=== PATIENT | female | born 1995 | race African-American/Black ===

== ENCOUNTER 2019-04-29 23:28 | Emergency (ER) | payer SELFPAY ==
[~2019-04-29] VITALS: Ht 170.2 cm; Wt 61.2 kg
--- NOTE | 2019-04-29 23:44 | NUR ---
ER Nurse Note: Pt walked in c/o bright red vaginal bleeding since 04/28. Pt stated she has n/v in the past day. Pt stated she is changing her sunny-pad q45 min; sunny-pad is fully saturated. Pt stated cramping. Pt reported she took a test and resulted as positive. Last menstrual cycle was 03/2019.
--- NOTE | 2019-04-29 23:54 | Emergency Room Report ---
History of Present Illness General Chief Complaint: Complications Source: Patient Present Illness HPI Patient is a 23-year-old female presents after increased vaginal bleeding. Patient reports being and having recent positive test. She states she is G2, P0. She reports of increased clotting but denies any passage of tissue. She had not been vomiting. Denies any current dizziness or lightheadedness. Reports having some pelvic cramping onset of symptoms. Allergies: Coded Allergies: No Known Allergies (Unverified , 04/29/19) Patient History Past Medical History: see triage record Last Menstrual Period: 03/30/19 Now: Yes Reviewed Nursing Documentation: PMH: Agreed; PSxH: Agreed Nursing Documentation-PMH Past Medical History: No History, Except For Review of Systems All Other Systems: negative except mentioned in HPI Physical Exam Vital Signs Date Time Temp Pulse Resp B/P (MAP) Pulse Ox O2 Delivery O2 Flow Rate FiO2 04/29/19 23:32 98.4 65 16 113/60 (77) 98 Room Air Sp02 EP Interpretation: reviewed, normal General Appearance: normal inspection, well appearing, no apparent distress, alert, GCS 15, non-toxic Head: atraumatic ENT: normal ENT inspection, hearing grossly normal, normal voice Neck: normal inspection, full range of motion, supple, no bony tend Respiratory: normal inspection, lungs clear, normal breath sounds, no respiratory distress, no retraction, no wheezing Cardiovascular #1: regular rate, rhythm, no edema Gastrointestinal: normal inspection, normal bowel sounds, non tender, soft, no guarding, no hernia Genitourinary: no CVA tenderness Musculoskeletal: normal inspection, back normal, normal range of motion Neurologic: alert, motor strength/tone normal, marinator III-XII nml as tested, responsive, speech normal, normal inspection Psychiatric: normal inspection, judgement/insight normal, mood/affect normal Medical Decision Making Diagnostic Impression: Primary Impression: Urinary tract infection ER Course Presented for vaginal bleeding. Differential diagnosis include was not limited to anemia, coagulopathy, threatened miscarriage among others. Because of complexity of patient's case laboratory tests and imaging studies were ordered. Patient laboratory testing was unremarkable. Patient did have some reported bleeding laboratory testing showed adequate hemoglobin. Pelvic ultrasound did not show any evidence of ovarian cyst or adnexal mass. No intrauterine was seen.Patient's quantitative hCG was noted to be less than 1. Patient appears to be stable for outpatient management. She is advised to follow-up with her VENDING ROUTE DRIVER for recheck.Patient will be given prescription for oral antibiotics. Patient is advised to return if worse or any other concerns. This medical record is generated with [employer] director of development and marketing software. There may be some director of development and marketing discrepancies related to use of this software Labs Test 04/29/19 23:50 White Blood Count 8.3 K/UL (4.8-10.8) Red Blood Count 4.55 M/UL (4.20-5.40) Hemoglobin 14.8 G/DL (12.0-16.0) Hematocrit 43.6 % (37.0-47.0) Mean Corpuscular Volume 96 FL (80-99) Mean Corpuscular Hemoglobin 32.4 PG (27.0-31.0) Mean Corpuscular Hemoglobin Concent 33.9 G/DL (32.0-36.0) Red Cell Distribution Width 12.2 % (11.6-14.8) Platelet Count 172 K/UL (150-450) Mean Platelet Volume 10.9 FL (6.5-10.1) Neutrophils (%) (Auto) 61.9 % (45.0-75.0) Lymphocytes (%) (Auto) 30.9 % (20.0-45.0) Monocytes (%) (Auto) 5.0 % (1.0-10.0) Eosinophils (%) (Auto) 1.1 % (0.0-3.0) Basophils (%) (Auto) 1.1 % (0.0-2.0) Prothrombin Time 10.0 SEC (9.30-11.50) Prothromb Time International Ratio 0.9 (0.9-1.1) Activated Partial Thromboplast Time 27 SEC (23-33) Urine Color Yellow Urine Appearance Clear Urine pH 6 (4.5-8.0) Urine Specific [place] 1.025 (1.005-1.035) Urine Protein 1+ (NEGATIVE) Urine Glucose (UA) Negative (NEGATIVE) Urine Ketones 1+ (NEGATIVE) Urine Blood 5+ (NEGATIVE) Urine Nitrite Negative (NEGATIVE) Urine Bilirubin Negative (NEGATIVE) Urine Ictotest Negative (NEGATIVE) Urine Urobilinogen Normal MG/DL (0.0-1.0) Urine Leukocyte Esterase 1+ (NEGATIVE) Urine RBC 15-20 /HPF (0 - 2) Urine WBC 5-10 /HPF (0 - 2) Urine Squamous Epithelial Cells Many /LPF (NONE/OCC) Urine Bacteria Few /HPF (NONE) Sodium Level 146 MMOL/L (136-145) Potassium Level 3.8 MMOL/L (3.5-5.1) Chloride Level 107 MMOL/L (98-107) Carbon Dioxide Level 24 MMOL/L (21-32) Anion Gap 15 mmol/L (5-15) Blood Urea Nitrogen 14 mg/dL (7-18) Creatinine 1.1 MG/DL (0.55-1.30) Estimat Glomerular Filtration Rate > 60 mL/min (>60) Glucose Level 80 MG/DL (74-106) Calcium Level 9.3 MG/DL (8.5-10.1) Total Bilirubin 0.3 MG/DL (0.2-1.0) Aspartate Amino Transf (AST/SGOT) 19 U/L (15-37) Alanine Aminotransferase (ALT/SGPT) 22 U/L (12-78) Alkaline Phosphatase 59 U/L (46-116) Total Protein 8.2 G/DL (6.4-8.2) Albumin 4.0 G/DL (3.4-5.0) Globulin 4.2 g/dL Albumin/Globulin Ratio 1.0 (1.0-2.7) Lipase 130 U/L (73-393) Last Vital Signs Date Time Temp Pulse Resp B/P (MAP) Pulse Ox O2 Delivery O2 Flow Rate FiO2 04/29/19 23:32 98.4 65 16 113/60 (77) 98 Room Air Status: improved Disposition: HOME, SELF-CARE Condition: Stable Scripts Cephalexin* (KEFLEX*) 500 Mg Capsule 500 MG ORAL EVERY 6 HOURS, #28 CAP Prov: Jose Manuel Thomas MD 04/30/19 Referrals: NOT CHOSEN IPA/,REFERRING (PCP) Jose Manuel Thomas MD Apr 29, 2019 23:54
--- NOTE | 2019-04-30 00:09 | NUR ---
ER Nurse Note: Blood and urine sent to lab; awaiting results. US tech at pt side. Pt ambulatory and left with US tech. Will continue to montior.
[2019-04-30 00:10] LABS: BASOPHILS % (AUTO) 1.1 % (0.0-2.0); EOSINOPHILS % (AUTO) 1.1 % (0.0-3.0); HEMATOCRIT 43.6 % (37.0-47.0); HEMOGLOBIN 14.8 G/DL (12.0-16.0); LYMPHOCYTES % (AUTO) 30.9 % (20.0-45.0); MEAN CORPUSCULAR VOLUME 96 FL (80-99); NEUTROPHILS % (AUTO) 61.9 % (45.0-75.0); PLATELET COUNT 172 K/UL (150-450); RED BLOOD COUNT 4.55 M/UL (4.20-5.40); RED CELL DISTRIBUTION WIDTH 12.2 % (11.6-14.8); WHITE BLOOD COUNT 8.3 K/UL (4.8-10.8)
[2019-04-30 00:12] LABS: APPEARANCE,URINE CLEAR; BILIRUBIN, URINE NEGATIVE (NEGATIVE); GLUCOSE, URINE (UA) NEGATIVE (NEGATIVE); KETONES,URINE 1+ (NEGATIVE); LEUKOCYTE ESTERASE ,URINE 1+ (NEGATIVE); NITRITE,URINE NEGATIVE (NEGATIVE); PH,URINE 6 (4.5-8.0); PROTEIN,URINE 1+ (NEGATIVE); UROBILINOGEN,URINE NORMAL MG/DL (0.0-1.0)
[2019-04-30 00:25] LABS: ANION GAP 15 mmol/L (5-15); BLOOD UREA NITROGEN 14 mg/dL (7-18); CALCIUM 9.3 MG/DL (8.5-10.1); CARBON DIOXIDE 24 MMOL/L (21-32); CHLORIDE 107 MMOL/L (98-107); CREATININE 1.1 MG/DL (0.55-1.30); INR 0.9 (0.9-1.1); POTASSIUM 3.8 MMOL/L (3.5-5.1); SODIUM 146 MMOL/L (136-145)
[2019-04-30 00:29] LABS: ALANINE AMINOTRANSFERASE 22 U/L (12-78); ALKALINE PHOSPHATASE 59 U/L (46-116); ASPARTATE AMINO TRANSFERASE 19 U/L (15-37); BILIRUBIN,TOTAL 0.3 MG/DL (0.2-1.0); COLOR,URINE YELLOW
--- NOTE | 2019-04-30 01:31 | Diagnostic Imaging Report ---
Indication: Vaginal bleeding 23-year-old female Technique: Grayscale and duplex Doppler imaging of the pelvis performed utilizing a transabdominal and endovaginal scan. Comparison: None Findings: The size, contour, and configuration of the uterus is within normal limits. The endometrium is uniformly echogenic and normal in thickness. There is a 1 cm cystic focus within the cervix. Suspect nabothian cyst but contains low-level internal echoes. The ovaries appear normal bilaterally with good dopplerable blood flow. There is no significant free fluid identified. The uterus measures 7.8 x 3.2 x 3.7 cm. Right ovary 2.7 x 2.4 x 1.5 cm. Left ovary 2.6 x 2.4 x 1.3 cm. IMPRESSION: Suspected cervical nabothian cyst Negative pelvic ultrasound. No acute findings.
[2019-04-30] MEDS ORDERED: CEPHALEXIN500 MG ORAL (01:33)
[2019-04-30 01:45] VITALS: BP 106/64
--- NOTE | 2019-04-30 01:45 | NUR ---
ED Nurse Note: All orders completed per ERMD orders. Pt cleared by health care Provider for discharge. DC instructions/prescription was given and explained to pt and verbalized understanding of teachings. Instructed pt to follow up with primary care physcian within one week. All medical deviecs such as ID band and IV removed; site cleaned and bandaged. Pt is AAO x4, ambulatory and left with all personal belongings.
== END 2019-04-30 01:45 | disposition home or self-care (01) ==
LOC: EMR 23:51
DX: N39.0 Urinary tract infection, site not specified (principal)
CPT/HCPCS: 36415; 76830; 76856; 80053; 81003; 83690; 84702; 85025; 85610; 85730; 86850; 86900; 86901; 99284

== ENCOUNTER 2019-11-02 09:31 | Emergency (ER) | payer SELFPAY ==
[~2019-11-02] VITALS: Ht 172.7 cm; Wt 60.3 kg
[~2019-11-02 09:31] MED LIST: CEPHALEXIN500 MG ORAL
--- NOTE | 2019-11-02 09:45 | NUR ---
ED Nurse Note: Recieved pt from home, here with c/o being with mild vag bleeding and pain, pt is 2 para 0, 1 , LMP 09/2019, pt ststes has mild pain since yesterday with scant, bright red bleeding noted when wiping, pt denies vomiting, fevers or blood clots, pt is ambulatory and denies any other discomforts or complaints.
--- NOTE | 2019-11-02 09:53 | Emergency Room Report ---
History of Present Illness General Chief Complaint: Complications Source: Patient Present Illness HPI Patient presents with 2 days of vaginal bleeding. Last menstruation was September 24. She had a positive test on the . She has not passed any tissue or clots. She has some crampy abdominal pain is 5/10 and localized to her suprapubic area not radiating. She not take any medications and not taking vitamins yet. She denies any morning sickness or vomiting. There are no fever or chills. She denies dysuria. 2 para 0 IAB 1. She does not know her blood type. She denies exposure to COVID-19 positive contacts. No sore throat, chest pain, palpitations, diarrhea, shortness of breath, joint pain, rashes, anxiety, visual changes, dizziness, headache. Allergies: Coded Allergies: No Known Allergies (Unverified , 04/29/19) COVID-19 Screening Contact w/high risk pt: No Experienced COVID-19 symptoms?: No COVID-19 Testing performed SURVEY AND MAPPING TECHNICIAN: No Patient History Past Medical History: see triage record Social History: Denies: smoking Social History Narrative From home Last Menstrual Period: 09/25/19 Now: Yes : 2 Para: 0 Reviewed Nursing Documentation: PMH: Agreed; PSxH: Agreed Nursing Documentation-PMH Past Medical History: No Stated History Hx Cardiac Problems: No Hx Hypertension: No Hx Pacemaker: No Hx Asthma: No Hx COPD: No Hx Diabetes: No Hx Cancer: No Hx Gastrointestinal Problems: No Hx Dialysis: No History Of Psychiatric Problem: No Hx Neurological Problems: No Hx Cerebrovascular Accident: No Hx Seizures: No Review of Systems All Other Systems: negative except mentioned in HPI Physical Exam Vital Signs Date Time Temp Pulse Resp B/P (MAP) Pulse Ox O2 Delivery O2 Flow Rate FiO2 11/02/19 09:36 98.4 79 16 114/63 (80) 98 Room Air Sp02 EP Interpretation: reviewed, normal General Appearance: well appearing, no apparent distress, GCS 15 Head: normocephalic Eyes: bilateral eye normal inspection, bilateral eye PERRL, bilateral eye EOMI ENT: other - Wearing mask Neck: supple Respiratory: lungs clear, normal breath sounds Cardiovascular #1: regular rate, rhythm Cardiovascular #2: 2+ radial (R) Gastrointestinal: normal inspection, normal bowel sounds, no mass, non- distended, no guarding, no rebound, tenderness - Ported suprapubic Genitourinary: no CVA tenderness, deferred - Ultrasound Musculoskeletal: back normal, normal range of motion, gait/station normal Neurologic: alert, oriented x3, grossly normal Psychiatric: mood/affect normal Skin: no rash, warm/dry Medical Decision Making Diagnostic Impression: Primary Impression: Threatened miscarriage ER Course Patient presents with vaginal bleeding 2 days with history of C. Differential includes spontaneous miscarriage, ectopic , first trimester vaginal bleeding amongst others. I will need to exclude urinary tract infection. In addition blood type needs to be determined. Evaluation with labs and ultrasound. Treatment with Tylenol. Also IV hydration indicated. Normal CBC. CMP normal. Quant hCG as below. Blood type O+. Ultrasound with yolk sac no fetus. Discussed findings with patient. She states bleeding has stopped. She states the pain is greatly improved. Discussed treatment plan with patient with follow -up with her VOCATIONAL DIRECTOR. She has an appointment on Monday. Patient stable for outpatient observation and treatment. Laboratory Tests Test 11/02/19 09:42 11/02/19 09:50 Urine Color Yellow Urine Appearance Slightly cloudy Urine pH 6 (4.5-8.0) Urine Specific [place] 1.025 (1.005-1.035) Urine Protein Negative (NEGATIVE) Urine Glucose (UA) Negative (NEGATIVE) Urine Ketones 4+ (NEGATIVE) H Urine Blood 4+ (NEGATIVE) H Urine Nitrite Negative (NEGATIVE) Urine Bilirubin Negative (NEGATIVE) Urine Urobilinogen Normal MG/DL (0.0-1.0) Urine Leukocyte Esterase Negative (NEGATIVE) Urine RBC 5-10 /HPF (0 - 2) H Urine WBC 2-4 /HPF (0 - 2) Urine Squamous Epithelial Cells Many /LPF (NONE/OCC) H Urine Bacteria Few /HPF (NONE) Urine Mucus Moderate /LPF (NONE/OCC) H White Blood Count 8.8 K/UL (4.8-10.8) Red Blood Count 4.59 M/UL (4.20-5.40) Hemoglobin 14.7 G/DL (12.0-16.0) Hematocrit 43.5 % (37.0-47.0) Mean Corpuscular Volume 95 FL (80-99) Mean Corpuscular Hemoglobin 32.0 PG (27.0-31.0) H Mean Corpuscular Hemoglobin Concent 33.7 G/DL (32.0-36.0) Red Cell Distribution Width 11.4 % (11.6-14.8) L Platelet Count 177 K/UL (150-450) Mean Platelet Volume 9.0 FL (6.5-10.1) Neutrophils (%) (Auto) 72.4 % (45.0-75.0) Lymphocytes (%) (Auto) 20.4 % (20.0-45.0) Monocytes (%) (Auto) 5.3 % (1.0-10.0) Eosinophils (%) (Auto) 0.2 % (0.0-3.0) Basophils (%) (Auto) 1.8 % (0.0-2.0) Prothrombin Time 11.3 SEC (9.30-11.50) Prothrombin Time INR 1.0 (0.9-1.1) Activated Partial Thromboplast Time 28 SEC (23-33) Sodium Level 140 MMOL/L (136-145) Potassium Level 3.1 MMOL/L (3.5-5.1) L Chloride Level 104 MMOL/L (98-107) Carbon Dioxide Level 26 MMOL/L (21-32) Anion Gap 10 mmol/L (5-15) Blood Urea Nitrogen 10 mg/dL (7-18) Creatinine 0.7 MG/DL (0.55-1.30) Estimated Glomerular Filtration Rate > 60 mL/min (>60) Glucose Level 90 MG/DL (74-106) Calcium Level 8.9 MG/DL (8.5-10.1) Total Bilirubin 0.9 MG/DL (0.2-1.0) Aspartate Amino Transferase (AST) 17 U/L (15-37) Alanine Aminotransferase (ALT) 19 U/L (12-78) Alkaline Phosphatase 45 U/L (46-116) L Total Protein 8.6 G/DL (6.4-8.2) H Albumin 4.3 G/DL (3.4-5.0) Globulin 4.3 g/dL Albumin/Globulin Ratio 1.0 (1.0-2.7) Lipase 99 U/L (73-393) Human Chorionic Gonadotropin, Quant 4876 mIU/mL (1-6) H CT/MRI/US Diagnostic Results CT/MRI/US Diagnostic Results : Imaging Test Ordered: Pelvic ultrasound Impression Single intrauterine gestational sac with mean sac diameter of 0.84 cm, with estimated gestational age of 4 weeks 6 days. A 1.3 mm yolk sac is seen. No pole is identified. This is most likely related to very early status. Last Vital Signs Date Time Temp Pulse Resp B/P (MAP) Pulse Ox O2 Delivery O2 Flow Rate FiO2 11/02/19 11:30 98.4 76 16 121/69 100 Room Air Status: improved Disposition: HOME, SELF-CARE Condition: Improved Scripts Vit/Iron Fumarate/Fa ( 19 CHEWABLE TABLET) 1 Each Tab.chew 1 EACH PO DAILY, #30 TAB 1 Refill Prov: Zack Scanlon MD 11/02/19 Zack Scanlon MD Nov 02, 2019 09:53
[2019-11-02 10:05] LABS: BASOPHILS % (AUTO) 1.8 % (0.0-2.0); EOSINOPHILS % (AUTO) 0.2 % (0.0-3.0); HEMATOCRIT 43.5 % (37.0-47.0); HEMOGLOBIN 14.7 G/DL (12.0-16.0); LYMPHOCYTES % (AUTO) 20.4 % (20.0-45.0); MEAN CORPUSCULAR VOLUME 95 FL (80-99); MONOCYTES % (AUTO) 5.3 % (1.0-10.0); NEUTROPHILS % (AUTO) 72.4 % (45.0-75.0); PLATELET COUNT 177 K/UL (150-450); RED BLOOD COUNT 4.59 M/UL (4.20-5.40); RED CELL DISTRIBUTION WIDTH 11.4 % (11.6-14.8); WHITE BLOOD COUNT 8.8 K/UL (4.8-10.8)
[2019-11-02 10:12] LABS: APPEARANCE,URINE SLIGHTLY CLOUDY; BILIRUBIN, URINE NEGATIVE (NEGATIVE); GLUCOSE, URINE (UA) NEGATIVE (NEGATIVE); KETONES,URINE 4+ (NEGATIVE); LEUKOCYTE ESTERASE ,URINE NEGATIVE (NEGATIVE); NITRITE,URINE NEGATIVE (NEGATIVE); PH,URINE 6 (4.5-8.0); PROTEIN,URINE NEGATIVE (NEGATIVE); UROBILINOGEN,URINE NORMAL MG/DL (0.0-1.0)
[2019-11-02 10:13] LABS: COLOR,URINE YELLOW
[2019-11-02 10:14] LABS: ANION GAP 10 mmol/L (5-15); BLOOD UREA NITROGEN 10 mg/dL (7-18); CALCIUM 8.9 MG/DL (8.5-10.1); CARBON DIOXIDE 26 MMOL/L (21-32); CHLORIDE 104 MMOL/L (98-107); CREATININE 0.7 MG/DL (0.55-1.30); POTASSIUM 3.1 MMOL/L (3.5-5.1); SODIUM 140 MMOL/L (136-145)
[2019-11-02 10:18] LABS: ALANINE AMINOTRANSFERASE 19 U/L (12-78); ALBUMIN 4.3 G/DL (3.4-5.0); ALKALINE PHOSPHATASE 45 U/L (46-116); ASPARTATE AMINO TRANSFERASE 17 U/L (15-37); BILIRUBIN,TOTAL 0.9 MG/DL (0.2-1.0)
--- NOTE | 2019-11-02 10:52 | Diagnostic Imaging Report ---
EXAM: US , Transvaginal CLINICAL HISTORY: BLD TECHNIQUE: Real-time transvaginal obstetrical ultrasound of the maternal pelvis and a first trimester with image documentation. Transvaginal imaging was used for better evaluation of the fetus and adnexa. COMPARISON: Transabdominal pelvic ultrasound obtained concurrently FINDINGS: Gestation: Single intrauterine gestational sac with mean sac diameter of 0.84 cm. A 1.3 mm yolk sac is seen. No pole is identified. Placenta/amniotic fluid: Cannot be adequately evaluated due to the early gestational age. Uterus/cervix: Uterus measures 7.9 x 5.8 x 4.3 cm by transvaginal measurement. No myometrial mass. Ovaries: The ovaries were nonvisualized by transvaginal ultrasound. No mass. Free fluid: No free fluid seen. IMPRESSION: Single intrauterine gestational sac with mean sac diameter of 0.84 cm, with estimated gestational age of 4 weeks 6 days. A 1.3 mm yolk sac is seen. No pole is identified. This is most likely related to very early status.
--- NOTE | 2019-11-02 10:55 | Diagnostic Imaging Report ---
EXAM: US First Trimester , Transabdominal CLINICAL HISTORY: BLD TECHNIQUE: Real-time transabdominal obstetrical ultrasound of the maternal pelvis and a first trimester with image documentation. COMPARISON: Transvaginal pelvic ultrasound obtained the same date FINDINGS: Gestation: Single intrauterine gestational sac with mean diameter of 7. 5 mm by transabdominal ultrasound. No pole identified. Placenta/amniotic fluid: Cannot be adequately evaluated due to the early gestational age. Uterus/cervix: Uterus measures 8.2 x 5.8 x 4.8 cm by transabdominal ultrasound cm. Incidental note of a 1.3 x 1.2 cm cystic focus in the cervix, most likely a nabothian cyst. No myometrial mass. Ovaries: Right ovary measures 3.5 x 2.0 x 2.0 cm. Normal Doppler blood flow. 1.6 x 1.2 x 0.8 cm follicle versus simple cyst in the right ovary. Left ovary was not identified, obscured by bowel gas. Free fluid: No free fluid. IMPRESSION: Single intrauterine gestational sac with mean diameter of 7.5 mm by transabdominal ultrasound. No pole identified. This is most likely related to early status.
[2019-11-02 11:10] VITALS: BP 121/69
--- NOTE | 2019-11-02 11:15 | NUR ---
ED Nurse Note: Pt continues to rest quietly, meds given for pain effective, IV site patent, no changes noted since here or increased distress, v/s stable, will continue to monitor while waiting for dispostition.
[2019-11-02] MEDS ORDERED: PRENATAL 19 CH1 EACH PO (11:20)
[2019-11-02 11:30] VITALS: BP 121/69
--- NOTE | 2019-11-02 11:30 | NUR ---
ER DISCHARGE NOTE: Patient is cleared to be discharged per ERMD, pt is aox4, on room air, with stable vital signs. pt was given dc and prescription instructions, pt was able to verbalize understanding, pt id band and iv site removed without complications. pt is able to ambulate with steady gait. pt took all belongings.
== END 2019-11-02 11:30 | disposition home or self-care (01) ==
LOC: EMR 09:52
DX: O20.0 Threatened abortion (principal); Z3A.01 Less than 8 weeks gestation of pregnancy
CPT/HCPCS: 36415; 76801; 76817; 80053; 81003; 83690; 84702; 85025; 85610; 85730; 86850; 86900; 86901; 96360; 99284; J7030

== ENCOUNTER 2020-04-05 00:10 | Emergency (ER) | payer MEDICAID ==
[~2020-04-05] VITALS: Ht 170.2 cm; Wt 60.3 kg
[~2020-04-05 00:10] MED LIST changes: +PRENATAL 19 CH1 EACH PO
[2020-04-05 00:12] VITALS: BP 122/66
--- NOTE | 2020-04-05 00:30 | NUR ---
ED Nurse Note: Patient comes to the ED with complaints of vaginal spotting and abdominal cramping. Patient reports being 27 weeks . Patient is also reporting bilateral ear pain 8/10. Patient is in no acute distress.
--- NOTE | 2020-04-05 00:49 | Emergency Room Report ---
History of Present Illness General Chief Complaint: Complications Source: Patient Present Illness HPI This is a 24-year-old female with no past medical history. She is 2, para 0, A1. She is approximately 27 weeks . She presents with chief complaint of spotting. Onset for last couple days. No fever chills. No nausea no vomiting. Slight cramping. No trauma. She also complained of ear pain has been going on for 1 day. Worse when he tried to blow her nose. She felt like there is fluid in her ear. Denies any cough or congestion. Allergies: Coded Allergies: No Known Allergies (Unverified , 04/29/19) COVID-19 Screening Contact w/high risk pt: No Experienced COVID-19 symptoms?: No COVID-19 Testing performed COMMERCIAL UNDERWRITER: No Patient History Past Medical History: see triage record, old chart reviewed Past Surgical History: none Pertinent Family History: none Social History: Denies: smoking Last Menstrual Period: 09/29/2019 Now: Yes : 1 Para: 0 Immunizations: other Reviewed Nursing Documentation: PMH: Agreed; PSxH: Agreed Nursing Documentation-PMH Hx Cardiac Problems: No Hx Hypertension: No Hx Pacemaker: No Hx Asthma: No Hx COPD: No Hx Diabetes: No Hx Cancer: No Hx Gastrointestinal Problems: No Hx Dialysis: No Hx Neurological Problems: No Hx Cerebrovascular Accident: No Hx Seizures: No Review of Systems Eye: Denies: eye pain, blurred vision ENT: Reports: ear pain; Denies: nose congestion, throat swelling Respiratory: Denies: cough, shortness of breath Cardiovascular: Denies: chest pain, palpitations Gastrointestinal: Denies: abdominal pain, diarrhea, nausea, vomiting Musculoskeletal: Denies: back pain, joint pain Skin: Denies: rash Neurological: Denies: headache, numbness Endocrine: Denies: increased thirst, increased urine Hematologic/Lymphatic: Denies: easy bruising All Other Systems: negative except mentioned in HPI Physical Exam Vital Signs Date Time Temp Pulse Resp B/P (MAP) Pulse Ox O2 Delivery O2 Flow Rate FiO2 04/05/20 00:12 98.6 95 16 122/66 (84) 97 Room Air Vitals normal Sp02 EP Interpretation: reviewed, normal General Appearance: well appearing, no apparent distress, alert Head: normocephalic, atraumatic Eyes: bilateral eye PERRL, bilateral eye EOMI ENT: hearing grossly normal, normal pharynx, other - bilateral TMs are erythematous Neck: full range of motion, supple, no meningismus Respiratory: chest non-tender, lungs clear, normal breath sounds Cardiovascular #1: regular rate, rhythm, no murmur Gastrointestinal: normal bowel sounds, non tender, no mass, no organomegaly, no bruit, non-distended, other - Gravid Musculoskeletal: back normal, normal range of motion, gait/station normal Psychiatric: mood/affect normal Medical Decision Making Diagnostic Impression: Primary Impression: Threatened in second trimester Additional Impressions: Otitis media Qualified Codes: H66.93 - Otitis media, unspecified, bilateral UTI (urinary tract infection) Qualified Codes: N30.00 - Acute cystitis without hematuria ER Course This patient presents with spotting. Bedside ultrasound showed a live IUP with good movement and heart rate. No evidence of abruption. She does have urinary tract infection and otitis media. Dose of antibiotics given here. Will discharge home. Last Vital Signs Date Time Temp Pulse Resp B/P (MAP) Pulse Ox O2 Delivery O2 Flow Rate FiO2 04/05/20 00:12 98.6 95 16 122/66 (84) 97 Room Air Status: improved Disposition: HOME, SELF-CARE Condition: Stable Scripts Cephalexin* (KEFLEX*) 500 Mg Capsule 500 MG ORAL TID, #21 CAP Prov: Ramiro Adams MD 04/05/20 Referrals: NOT CHOSEN IPA/,REFERRING (PCP) Additional Instructions: Follow-up with your doctor in 7 days. Return if symptoms worsen. Ramiro Adams MD Apr 05, 2020 00:49
[2020-04-05 01:00] LABS: APPEARANCE,URINE SLIGHTLY CLOUDY; BILIRUBIN, URINE NEGATIVE (NEGATIVE); GLUCOSE, URINE (UA) 3+ (NEGATIVE); KETONES,URINE 1+ (NEGATIVE); LEUKOCYTE ESTERASE ,URINE 1+ (NEGATIVE); NITRITE,URINE NEGATIVE (NEGATIVE); PH,URINE 6.5 (4.5-8.0); PROTEIN,URINE 1+ (NEGATIVE); UROBILINOGEN,URINE 4 MG/DL (0.0-1.0)
[2020-04-05 01:01] LABS: COLOR,URINE PALE YELLOW
[2020-04-05] MEDS ORDERED: CEPHALEXIN500 MG ORAL (01:20)
[2020-04-05] MEDS ORDERED: Cephalexin 500mg cap ORAL ONE (01:30)
--- NOTE | 2020-04-05 01:31 | NUR ---
ER DISCHARGE NOTE: Patient is cleared to be discharged per ERMD, pt is aox4, on room air, with stable vital signs. pt was given dc and prescription instructions, pt was able to verbalize understanding, pt is able to ambulate with steady gait. Follow up with OB stressed.
== END 2020-04-05 01:33 | disposition home or self-care (01) ==
LOC: EMR 00:36
DX: O20.0 Threatened abortion (principal); Z3A.27 27 weeks gestation of pregnancy; O26.892 Other specified pregnancy related conditions, second trimester; H66.93 Otitis media, unspecified, bilateral; O23.42 Unspecified infection of urinary tract in pregnancy, second trimester
CPT/HCPCS: 81003; 87086; Z7502; 99283

== ENCOUNTER 2020-04-17 01:22 | Emergency (ER) | payer MEDICAID ==
[~2020-04-17] VITALS: Ht 170.2 cm; Wt 67.1 kg
--- NOTE | 2020-04-17 01:41 | NUR ---
ED Nurse Note: Pt c/o right thigh pain, intermittent for past few weeks that is worse today. Pt reports she is x7 months with due date of June 30. Pt transferred from wheelchair to stretcher without difficulty. Pt is AAO x4.
[2020-04-17 01:44] VITALS: BP 106/40
--- NOTE | 2020-04-17 01:58 | Emergency Room Report ---
History of Present Illness General Chief Complaint: Pain Source: Patient Present Illness HPI This is a 24-year-old female who is 27 weeks . She presents with chief complaint of right leg pain. Onset initially about 2 to 3 weeks ago. It went away but now it came back again where the last few days she is having trouble bearing weight on it. She said she walks and it hurts. Pain is to the right anterior thigh. There is no swelling. No fever chills. Pain is 8 out of 10. Denies any fever chills but denies any vaginal bleeding. Still has good movement. No other complaint. Denies any back pain. Allergies: Coded Allergies: No Known Allergies (Unverified , 04/29/19) COVID-19 Screening Contact w/high risk pt: No Experienced COVID-19 symptoms?: No COVID-19 Testing performed SECOND WORKER: No Patient History Past Medical History: see triage record, old chart reviewed Past Surgical History: none Pertinent Family History: none Social History: Denies: smoking Last Menstrual Period: 09/29/2019 Now: Yes : 1 Para: 0 Immunizations: other Reviewed Nursing Documentation: PMH: Agreed; PSxH: Agreed Nursing Documentation-PMH Hx Cardiac Problems: No Hx Hypertension: No Hx Pacemaker: No Hx Asthma: No Hx COPD: No Hx Diabetes: No Hx Cancer: No Hx Gastrointestinal Problems: No Hx Dialysis: No Hx Neurological Problems: No Hx Cerebrovascular Accident: No Hx Seizures: No Review of Systems Eye: Denies: eye pain, blurred vision ENT: Denies: ear pain, nose congestion, throat swelling Respiratory: Denies: cough, shortness of breath Cardiovascular: Denies: chest pain, palpitations Gastrointestinal: Denies: abdominal pain, diarrhea, nausea, vomiting Musculoskeletal: Reports: muscle pain; Denies: back pain, joint pain Skin: Denies: rash Neurological: Denies: headache, numbness Endocrine: Denies: increased thirst, increased urine Hematologic/Lymphatic: Denies: easy bruising All Other Systems: negative except mentioned in HPI Physical Exam Vital Signs Date Time Temp Pulse Resp B/P (MAP) Pulse Ox O2 Delivery O2 Flow Rate FiO2 04/17/20 01:32 98.1 86 18 106/40 (62) 97 Room Air Vitals normal Sp02 EP Interpretation: reviewed, normal General Appearance: well appearing, no apparent distress, alert Head: normocephalic, atraumatic Eyes: bilateral eye PERRL, bilateral eye EOMI ENT: hearing grossly normal, normal pharynx Neck: full range of motion, supple, no meningismus Respiratory: chest non-tender, lungs clear, normal breath sounds Cardiovascular #1: regular rate, rhythm, no murmur Gastrointestinal: normal bowel sounds, non tender, no mass, no organomegaly, no bruit, non-distended, other - gravid Musculoskeletal: back normal, normal range of motion, gait/station normal, other - Right anterior thigh with tenderness. No edema or erythema. Worse with movement. Psychiatric: mood/affect normal Medical Decision Making Diagnostic Impression: Primary Impression: Muscle strain of right thigh Qualified Codes: S76.911A - Strain of unspecified muscles, fascia and tendons at thigh level, right thigh, initial encounter ER Course Patient with right leg pain. No evidence of DVT. Most likely muscle pull. No evidence of any infection. Will discharge home. CT/MRI/US Diagnostic Results CT/MRI/US Diagnostic Results : Imaging Test Ordered: Ultrasound right leg Impression Negative per radiologist Last Vital Signs Date Time Temp Pulse Resp B/P (MAP) Pulse Ox O2 Delivery O2 Flow Rate FiO2 04/17/20 01:44 98.1 18 106/40 97 Room Air 04/17/20 01:32 86 Status: improved Disposition: HOME, SELF-CARE Condition: Stable Scripts Hydrocodone/Acetaminophen 5-325* (HYDROCODONE/ACETAMINOPHEN 5-325*) 1 Each Tablet 1 TAB ORAL Q6H PRN for For Pain, #20 TAB 0 Refills Prov: Ramiro Adams MD 04/17/20 Referrals: [facility],REFERRING (PCP) Additional Instructions: Follow-up with your doctor in 7 days as needed. Return if symptoms worsen. Ramiro Adams MD Apr 17, 2020 01:58
[2020-04-17] MEDS ORDERED: HYDROcodone/Acetamin 5/325 tab ORAL ONE (02:00)
[2020-04-17] MEDS ORDERED: HYDROCODON-ACE1 EA15 ORAL (03:36)
[2020-04-17 03:45] VITALS: BP 125/66
--- NOTE | 2020-04-17 14:15 | Diagnostic Imaging Report ---
Indication: Right leg pain and swelling Technique: Grayscale and duplex Doppler imaging of the veins in right lower extremity performed in real time utilizing compression and augmentation. Comparison: None Findings: Duplex Doppler interrogation of the veins in right lower extremity is performed from the common femoral vein to the popliteal vein. Normal venous compressibility demonstrated throughout. No thrombus identified. Waveform analysis shows good respiratory phasicity and augmentation. IMPRESSION: No evidence of deep venous thrombosis involving the visualized veins of the right lower extremity
== END 2020-04-17 03:47 | disposition home or self-care (01) ==
LOC: EMR 01:41
DX: S76.911A Strain of unspecified muscles, fascia and tendons at thigh level, right thigh, initial encounter (principal); O26.892 Other specified pregnancy related conditions, second trimester; Z3A.27 27 weeks gestation of pregnancy; X58.XXXA Exposure to other specified factors, initial encounter; Y93.9 Activity, unspecified; Y92.9 Unspecified place or not applicable
CPT/HCPCS: 93971; Z7502; 99284